=== PATIENT | female | born 1975 | race Caucasian/White ===

== ENCOUNTER 2016-09-14 12:06 | Inpatient (IN) ==
[2016-09-14 12:31] LABS: BILIRUBIN,URINE Negative (NEGATIVE); KETONES,URINE Trace (NEGATIVE); LEUKOCYTE ESTERASE ,URINE 1+ (NEGATIVE); NITRITE,URINE Positive (NEGATIVE); PROTEIN,URINE Negative (NEGATIVE); URINE, BLOOD 1+ (NEGATIVE)
[2016-09-14 12:32] LABS: ADD URINE MICROSCOPIC YES; URINE PREGNANCY INTERNAL QC INTERNAL QC VALID
[2016-09-14 12:33] LABS: BACTERIA,URINE 2+ (NOT PRESENT)
[2016-09-14 12:41] LABS: BASOPHILS # (AUTO) 0.1 K/uL (0-0.2); BASOPHILS % (AUTO) 0.3 % (0.0-3.0); EOSINOPHILS # (AUTO) 0.1 K/ul (0.0-0.7); EOSINOPHILS % (AUTO) 0.7 % (0.0-7.0); HEMATOCRIT 36.7 % (37.0-47.0); HEMOGLOBIN 11.9 g/dl (12.0-16.0); IMMATURE GRANULOCYTE % (AUTO) 0.9 % (0.0-5.0); LYMPHOCYTES # (AUTO) 1.9 K/uL (0.60-3.4); LYMPHOCYTES % (AUTO) 11.5 (10.0-50.0); MEAN CORPUSCULAR HEMOGLOBIN 30.5 pg (27.0-31.0); MEAN CORPUSCULAR HGB CONC 32.4 (31.8-35.4); MEAN CORPUSCULAR VOLUME 94.1 fl (81.0-99.0); MONOCYTES # (AUTO) 1.4 K/uL (0.4-2.0); MONOCYTES % (AUTO) 8.7 (0-10); NEUTROPHILS # (AUTO) 12.7 K/ul (2.0-6.9); NEUTROPHILS % (AUTO) 77.9; PLATELET COUNT 353 10^3/uL (140-440); WHITE BLOOD COUNT 16.27 K/ul (4.6-10.2)
[2016-09-14] MEDS ORDERED: SODIUM CHLORIDE 1,000 ML IV STA (12:43)
[2016-09-14] MEDS ORDERED: TORADOL IVP STA (12:44)
[2016-09-14] MEDS ORDERED: ROCEPHIN 1 GM in SODIUM CHLORIDE 50 ML IV STA (12:44)
[2016-09-14] MEDS ORDERED: MORPHINE 2 MG/ML SYRINGE IVP STA (12:46)
[2016-09-14] MEDS ORDERED: ZOFRAN 4 MG/2 ML IVP STA (12:46)
--- NOTE | 2016-09-14 12:48 | DI ---
Exam: Two x-rays of the chest. Comparison: 11/13/2011. Reason for exam: Fever. FINDINGS: No pneumothorax, pleural effusion, or focal consolidation. The cardiac silhouette is not enlarged. The imaged osseous structures are unremarkable without acute fracture. Impression: No acute cardiopulmonary process.
[2016-09-14] MEDS ORDERED: ROCEPHIN ONE (12:53)
[2016-09-14 13:00] LABS: ALBUMIN/GLOBULIN RATIO 0.77; ANION GAP 14.6; BILIRUBIN,TOTAL 0.12 mg/dL (0.00-1.20); BUN/CREATININE RATIO 19.04; CALCIUM 9.3 mg/dL (8.2-10.2); CREATININE 0.63 mg/dL (0.60-1.30); POTASSIUM 3.6 mmol/L (3.5-5.10); TOTAL PROTEIN 6.9 g/dL (6.4-8.2)
[2016-09-14 13:06] LABS: FLU INTERNAL QC INTERNAL QC VALID; RAPID FLU A NEGATIVE (NEGATIVE); RAPID FLU B NEGATIVE (NEGATIVE)
--- NOTE | 2016-09-14 13:19 | CT ---
Exam: CT of the abdomen pelvis without intravenous contrast. Comparison: 07/03/2014. Reason for exam: Flank pain and fever. UTI rule out obstruction. FINDINGS: Image interpretation is limited by the lack of intravenous contrast administration. No focal consolidation or pleural effusion in the partially imaged lung bases. Image interpretation is somewhat limited by paucity of intra-abdominal fat and attenuation artifact. . The liver, spleen, and gallbladder are grossly unremarkable. No calcific densities are seen within t he kidneys or along the expected course of the ureters. No intra-abdominal free air. The imaged os seous structures are unremarkable. No focal bowel dilatation or transition point. There is moderate to large stool burden seen through out the colon. Impression: 1. Limited evaluation secondary to attenuation artifact and a paucity of intra-abdominal fat. No o bvious nephrolithiasis or urolithiasis. If clinical concern exists, repeat imaging may be performed with a standard KVP. 2. Moderate to large stool burden. Report faxed at [phone] hours on 09/14/2016.
--- NOTE | 2016-09-14 13:27 | ED.PDOC ---
General ED Provider: Dr. BINTA MAHARAJ-ER Chief Complaint: Fever Stated Complaint: awilda had fever, chills, nausea body aches for a week Time Seen by Physician: 12:10 Mode of Arrival: Walk-In Information Source: Patient Exam Limitations: No limitations Primary Care Provider: MARGIE ALEMAN Nursing and Triage Documentation Reviewed and Agree: Yes Complaint Exam - UTI Female Complaint/Exam Patient Complains of: Reports: Painful urination Onset/Duration: 7 dasy Symptoms Are: Still present Initial Severity: Mild Current Severity: Moderate Associated Signs and Symptoms: Reports: Fever, Chills Patient Rh Status: Unknown CVA Tenderness: No Suprapubic Tenderness: No Differential Diagnoses: Cystitis, Pyelonephritis, Other Review of Systems - Review Of Systems Constitutional: Reports: Chills, Fever, Weakness, Loss of appetite Eyes: Reports: No symptoms Ears, Nose, Mouth, Throat: Reports: No symptoms Respiratory: Reports: No symptoms Cardiac: Reports: No symptoms GI: Reports: No symptoms : Reports: No symptoms Musculoskeletal: Reports: No symptoms Skin: Reports: No symptoms Neurological: Reports: No symptoms Endocrine: Reports: No symptoms Hematologic/Lymphatic: Reports: No symptoms All Other Systems: Reviewed and Negative Past Medical History - Past Medical History Endocrine: Reports: Unknown Cardiovascular: Reports: Unknown Respiratory: Reports: Unknown Hematological: Reports: Unknown Gastrointestinal: Reports: Unknown Genitourinary: Reports: Other (hx of IC) Neuro/Psych: Reports: None Musculoskeletal: Reports: None Cancer: Reports: None Last Menstrual Period: 08/27/16 - Surgical History General Surgical History: Reports: Unknown - Family History Family History: Reports: Unknown - Social History Smoking Status: Current some day smoker Hx Substance Use: No Alcohol Screening: Occasionally Lives: With family - Immunizations Tetanus Shot up to Date: Yes Physical Exam - Physical Exam Appearance: Well-appearing, No pain distress, Well-nourished Pain Distress: Mild Eyes: VALE, EOMI, Conjunctiva clear ENT: Ears normal, Nose normal, Oropharynx normal Neck: Supple Respiratory: Airway patent, Breath sounds clear, Breath sounds equal, Respirations nonlabored Cardiovascular: RRR, Pulses normal, No rub, No murmur GI/: Soft, Nontender, No masses, Bowel sounds normal, No Organomegaly Musculoskeletal: Normal strength, ROM intact, No edema, No calf tenderness Skin: Warm, Dry, Normal color Neurological: Sensation intact, Motor intact, Reflexes intact, Cranial nerves intact, Alert, Oriented Psychiatric: Affect appropriate, Mood appropriate Interpretation - Radiology Interpretation Radiology Interpretation By: ED Physician Radiology Results: Negative Exam Interpreted: CXR, CT Scan Re-Evaluation - Re-Evaluation Time of Re-Evaluation: 13:26 Status: Improved Vital Signs Stable: Yes Pain Level: 1 Appearance: NAD Lungs: Clear Skin: Warm and Dry Neuro: Alert and Oriented X3 CV: RRR Physician Notification - Case Discussed Physician Notified: dr eastman Time of Notification: 13:27 Critical Care Note - Critical Care Note Total Time (mins): 0 Course - Course Hematology/Chemistry: 09/14/16 12:25 09/14/16 12:25 Orders, Labs, Meds: Lab Review 09/14/16 09/14/16 09/14/16 12:20 12:25 12:45 WBC 16.27 H RBC 3.90 L Hgb 11.9 L Hct 36.7 L MCV 94.1 MCH 30.5 MCHC 32.4 RDW Coeff of [place] 13.2 Plt Count 353 Immature Gran % (Auto) 0.9 Neut % (Auto) 77.9 Lymph % (Auto) 11.5 [place] % (Auto) 8.7 Eos % (Auto) 0.7 Baso % (Auto) 0.3 Immature Gran # (Auto) 0.1 Neut # 12.7 H Lymph # 1.9 [place] # 1.4 Eos # 0.1 Baso # 0.1 Sodium 140 Potassium 3.6 Chloride 101 Carbon Dioxide 28 Anion Gap 14.6 BUN 12 Creatinine 0.63 Estimated GFR (MDRD) 105.00 BUN/Creatinine Ratio 19.04 Glucose 67 L Calcium 9.3 Total Bilirubin 0.12 AST 13 L ALT 13 Alkaline Phosphatase 96 Total Protein 6.9 Albumin 3.0 L Globulin 3.9 Albumin/Globulin Ratio 0.77 Urine Color Yellow Urine Clarity Slightly Urine pH 6.0 Ur Specific [place] 1.025 Urine Protein Negative Urine Glucose (UA) Negative Urine Ketones Trace Urine Blood 1+ Urine Nitrite Positive Urine Bilirubin Negative Urine Urobilinogen 0.2 Ur Leukocyte Esterase 1+ Urine Microscopic WBC 50-100 Ur Squamous Epith Cells Not present Urine Bacteria 2+ Urine Test Negative Influenza A (Rapid) Negative Influenza B (Rapid) Negative Orders Category Date Time Status ED IV/MEDIPORT/POWERPORT .ONCE EMERGENCY 09/14/16 12:43 Active BLOOD CULTURE Stat LAB 09/14/16 12:25 Received CBC W/ AUTO DIFF Stat LAB 09/14/16 12:25 Completed COMPREHENSIVE METABOLIC PANEL Stat LAB 09/14/16 12:25 Completed EHRLICHIA DNA, PCR Stat LAB 09/14/16 12:25 Received MOLECULAR GROUP A STREP Stat LAB 09/14/16 12:45 Results RAPID FLU A/B Stat LAB 09/14/16 12:45 Completed BERNY MTN SPOTTED FEVER,IgG Stat LAB 09/14/16 12:25 Received BERNY MTN SPOTTED FEVER,IgM Stat LAB 09/14/16 12:25 Received STREP SCREEN Stat LAB 09/14/16 12:45 Results URINALYSIS C & S IF INDICATED Stat LAB 09/14/16 12:20 Completed URINE CULTURE Stat LAB 09/14/16 12:20 Received URINE Stat LAB 09/14/16 12:20 Completed 0.9 % Sodium Chloride [Saline Flush] MEDS 09/14/16 12:43 Ordered 1 syr IVF PRN PRN Ceftriaxone Sodium [Rocephin] MEDS 09/14/16 12:53 Discontinued 1 gm .ROUTE .STK-MED ONE Ceftriaxone Sodium [Rocephin] 1 gm MEDS 09/14/16 12:44 Discontinued 0.9 % Sodium Chloride [Sodium Chloride] 50 ml IV ONCE Ketorolac Tromethamine [Toradol] MEDS 09/14/16 12:44 Discontinued 30 mg IVP ONCE STA Morphine Sulfate [Morphine 2 mg/ml Syringe] MEDS 09/14/16 12:46 Discontinued 2 mg IVP ONCE STA Ondansetron HCl/Pf [Zofran 4 mg/2 ml] MEDS 09/14/16 12:46 Discontinued 4 mg IVP ONCE STA Sodium Chloride 0.9% [Sodium Chloride] 1,000 ml MEDS 09/14/16 12:[address] ABDOMEN/PELVIS WO CONTRAST Stat RADS 09/14/16 12:43 Completed CXR [CHEST, 2 VIEWS PA & LAT] Stat RADS 09/14/16 12:20 Completed Medications Generic Name Dose Route Start Last Admin Trade Name Freq PRN Reason Stop Dose Admin Sodium Chloride 1,000 mls @ 1,200 mls/hr 09/14/16 12:43 09/14/16 13:06 Sodium Chloride IV 09/14/16 13:32 1,200 mls/hr BOLUS STA Administration Sodium Chloride 1 syr 09/14/16 12:43 Saline Flush IVF PRN PRN To flush IV Discontinued Medications Generic Name Dose Route Start Last Admin Trade Name Eugene PRN Reason Stop Dose Admin Ceftriaxone Sodium 1 gm/ 50 mls @ 75 mls/hr 09/14/16 12:44 09/14/16 13:05 Sodium Chloride IV 09/14/16 13:23 75 mls/hr ONCE STA Administration Ketorolac Tromethamine 30 mg 09/14/16 12:44 09/14/16 13:07 Toradol IVP 09/14/16 12:45 30 mg ONCE STA Administration Morphine Sulfate 2 mg 09/14/16 12:46 09/14/16 13:03 Morphine 2 Mg/Ml Syringe IVP 09/14/16 12:47 2 mg ONCE STA Administration Ondansetron HCl 4 mg 09/14/16 12:46 09/14/16 13:07 Zofran 4 Mg/2 Ml IVP 09/14/16 12:47 4 mg ONCE STA Administration Vital Signs: Temp Pulse Resp BP Pulse Ox 09/14/16 12:06 99.4 F 87 20 112/74 99 Departure - Departure Time of Disposition: 13:27 Disposition: ADMITTED INPATIENT Discharge Problem: Pyelonephritis Instructions: Urinary Tract Infection in Women (ED) Condition: Good Pt referred to PMD for follow-up: Yes Allergies/Adverse Reactions: Allergies No Known Allergies Allergy (Unverified 09/14/16 12:14) Home Medications: Ambulatory Orders Clonazepam [Klonopin] 2 mg PO TID 09/14/16 Pentosan Polysulfate Sodium [Elmiron] 100 mg PO TID 09/14/16 Sertraline HCl [Zoloft] 100 mg PO DAILY 09/14/16 Disposition Discussed With: Patient, Family
[2016-09-14] MEDS ORDERED: MOTRIN SUSP PO PRN (13:31)
[2016-09-14] MEDS ORDERED: NORCO 7.5-325 PO PRN (13:32)
[2016-09-14 14:26] VITALS: BMI 19.2
[2016-09-14] MEDS: SODIUM CHLORIDE 1,000 ML IV SCH (14:49)
[2016-09-14] MEDS ORDERED: KLONOPIN ONE ×2 (14:59→19:58)
[2016-09-14] MEDS: DOXY-100 100 MG in SODIUM CHLORIDE 250 ML IV SCH ×2 (15:11→20:35)
[2016-09-14] MEDS: NON-FORMULARY MEDICATION (Clonazepam [Klonopin] 2 MG) PO SCH ×2 (15:12→20:37)
[2016-09-14] MEDS: PENTOSAN POLYSULFATE SODIUM 100 MG PO SCH ×2 (15:13→20:39)
[2016-09-14] MEDS ORDERED: MORPHINE 2 MG/ML SYRINGE IVP PRN (15:55)
[2016-09-14] MEDS ORDERED: DILAUDID 1 MG/ML SYRINGE IVP STA (21:29)
[2016-09-14] MEDS: ZOFRAN 4 MG/2 ML IVP PRN (21:44)
[2016-09-14] MEDS ORDERED: MOTRIN ONE (22:21)
[2016-09-14] MEDS ORDERED: MOTRIN SUSP UD ONE (22:29)
[2016-09-15] MEDS: SODIUM CHLORIDE 1,000 ML IV SCH ×4 (00:45→18:55)
[2016-09-15] MEDS ORDERED: SODIUM CHLORIDE 500 ML IV STA (02:50)
[2016-09-15 04:55] LABS: BASOPHILS # (AUTO) 0.1 K/uL (0-0.2); BASOPHILS % (AUTO) 0.4 % (0.0-3.0); EOSINOPHILS # (AUTO) 0.1 K/ul (0.0-0.7); EOSINOPHILS % (AUTO) 0.8 % (0.0-7.0); HEMATOCRIT 32.1 % (37.0-47.0); HEMOGLOBIN 10.5 g/dl (12.0-16.0); IMMATURE GRANULOCYTE % (AUTO) 0.7 % (0.0-5.0); LYMPHOCYTES # (AUTO) 2.9 K/uL (0.60-3.4); LYMPHOCYTES % (AUTO) 18.1 (10.0-50.0); MEAN CORPUSCULAR HGB CONC 32.7 (31.8-35.4); MEAN CORPUSCULAR VOLUME 94.7 fl (81.0-99.0); MONOCYTES # (AUTO) 1.7 K/uL (0.4-2.0); MONOCYTES % (AUTO) 10.9 (0-10); NEUTROPHILS # (AUTO) 10.9 K/ul (2.0-6.9); NEUTROPHILS % (AUTO) 69.1; PLATELET COUNT 330 10^3/uL (140-440); RED BLOOD COUNT 3.39 10^6/ul (4.20-5.40); WHITE BLOOD COUNT 15.71 K/ul (4.6-10.2)
[2016-09-15 05:21] LABS: ALBUMIN 2.3 g/dL (3.4-5.0); ALBUMIN/GLOBULIN RATIO 0.72; ANION GAP 12.8; BILIRUBIN,TOTAL 0.11 mg/dL (0.00-1.20); BUN/CREATININE RATIO 15.15; CALCIUM 8.6 mg/dL (8.2-10.2); CREATININE 0.66 mg/dL (0.60-1.30); POTASSIUM 3.8 mmol/L (3.5-5.10); TOTAL PROTEIN 5.5 g/dL (6.4-8.2)
[2016-09-15] MEDS: ZOLOFT PO SCH (08:56)
[2016-09-15] MEDS: ROCEPHIN 1 GM in SODIUM CHLORIDE 50 ML IV SCH (08:57)
[2016-09-15] MEDS: KLONOPIN PO SCH ×3 (08:57→20:49)
[2016-09-15] MEDS ORDERED: NON-FORMULARY MEDICATION (Sertraline Hcl [Zoloft] 100 MG) PO SCH (09:00)
[2016-09-15] MEDS: PENTOSAN POLYSULFATE SODIUM 100 MG PO SCH ×3 (09:23→20:50)
[2016-09-15] MEDS: DOXY-100 100 MG in SODIUM CHLORIDE 250 ML IV SCH ×2 (10:02→20:49)
[2016-09-15] MEDS ORDERED: MOTRIN SUSP PO PRN (10:32)
--- NOTE | 2016-09-15 15:41 | HP ---
DATE OF SERVICE: 09/14/16 REASON FOR HOSPITALIZATION: Hurting all over HISTORY OF PRESENT ILLNESS: The patient is a 41 year old female came to the emergency room with the fever almost 102 to 103, hurting all over, burning and frequency of urination, suprapubic pain and back pain. The patient was seen by Dr. Carty in the emergency room, temperature 99.4, wbc 16,000. CT of abdomen and pelvis was done which showed limited evaluation. The patient did have flank pain, urine was positive for nitrates and leukocyte esterase. At that time the patient was admitted to the hospital with pyelonephritis, critically, in review of elevated white count, urine positive for nitrates and leukocyte esterase and the flank pain. Also the patient complained of having the tick bite for which the patient is started on the Doxycycline. REVIEW OF SYSTEMS: CONSTITUTIONAL: No night sweats. No fatigue, malaise, lethargy. No fever or chills. HEENT: Eyes: No visual changes. No eye pain. No eye discharge. ENT: No runny nose. No epistaxis. No sinus pain. No sore throat. No odynophagia. No ear pain. No congestion. RESPIRATORY: No cough, no congestion. No hemoptysis. CARDIOVASCULAR: No angina symptoms. No CHF symptoms. No atypical chest pain for CAD. No palpitations. No shortness of breath. GASTROINTESTINAL: No abdominal pain. No nausea or vomiting. No diarrhea or constipation. No hematemesis. No hematochezia. GENITOURINARY: Burning and frequency of urination. No dysuria. No hematuria. No obstructive symptoms. No discharge. No pain. No significant abnormal bleeding. MUSCULOSKELETAL: Muscle pain and myalgias. Hurting all over. No joint swelling. No arthritis. NEUROLOGICAL: No headache. No neck pain. No syncope. No seizures. No dizziness. PSYCHIATRIC: Not anxious. No depression. No suicidal thoughts. No homicidal thoughts. SKIN: No rash. No lesions. No wounds. ENDOCRINE: No unexplained weight loss. No weight gain. HEMATOLOGIC/LYMPHATIC: No anemia. No purpura. No petechiae. No prolonged or excessive bleeding. No palpable lymph nodes. PERSONAL/FAMILY/SOCIAL HISTORY: The patient is and lives with the . Non-smoker. No alcohol and no drugs. The family history is significant for the heart problems and cancer. PAST MEDICAL/SURGICAL PROBLEMS: Chronic cystitis for which she seems urologist Anxiety Tonsillectomy MEDICATIONS: Zoloft Elmiron Klonopin ALLERGIES: No known allergies. PHYSICAL EXAMINATION: VITAL SIGNS: Blood pressure 112/74, respiratory rate 20, heart rate 87 and temperature 99.4. HEENT: Head normocephalic, atraumatic. Eyes: Extraocular muscles are intact. Pupils are equal, round and reactive to light and accommodation. Ears: No lesions. Nose appeared normal. Throat: No exudate or erythema. Mucosa dry. NECK: Supple. No JVD, no carotid bruit. No lymphadenopathy or thyromegaly. LUNGS: Decreased and clear to auscultation. Percussion note normal. Chest symmetrical. HEART: S1, S2, no S3. No murmurs. No cyanosis or clubbing. No ascites. Pulses: Dorsalis pedis and posterior tibial pulses +1 to +2 both sides. ABDOMEN: Soft. Nontender. Bowel sounds active. Bilateral CVA tenderness is present. No mass felt. EXTREMITIES: No edema. Full range of motion of all extremities, equal. NEUROLOGIC: No focal deficit. Cranial nerves II through XII are grossly intact. No headache, no double vision or headache. SKIN: Not dry. Intact. Turgor - normal. LYMPHATIC: No palpable lymph nodes/no lymphedema. MUSCULOSKELETAL: Normal joints with no swelling. Muscle tone is normal. LABS: WBC 16.27, hgb 11.9, hct 36.7, plt count 353, sodium 140, potassium 3.6, chloride 101, Bicarb 28, BUN 12, creatinine 0.63 and glucose 67. Urine leukocyte esterase positive, Nitrates positive. ASSESSMENT: 1. Acute pyelonephritis 2. Tick bite, rule out any tick born disease 3. Chronic cystitis 4. Anxiety 5. Depression PLAN: 1. Admit patient to the regular floor 2. Will do CMP everyday 3. Regular diet 4. IV fluids 5. Continue home medication 6. Rocephin 1 gram daily 7. Morphine 2mg Q 8 hours 8. Daily I&O's Will follow the patient in daily rounds. TIME SPENT: More than 70 minutes. MTDD
[2016-09-15] MEDS ORDERED: DILAUDID 1 MG/ML SYRINGE IVP STA (17:41)
[2016-09-16 04:56] LABS: BASOPHILS # (AUTO) 0.1 K/uL (0-0.2); BASOPHILS % (AUTO) 0.4 % (0.0-3.0); EOSINOPHILS # (AUTO) 0.2 K/ul (0.0-0.7); EOSINOPHILS % (AUTO) 1.4 % (0.0-7.0); HEMATOCRIT 32.1 % (37.0-47.0); HEMOGLOBIN 10.4 g/dl (12.0-16.0); IMMATURE GRANULOCYTE % (AUTO) 0.9 % (0.0-5.0); LYMPHOCYTES # (AUTO) 2.9 K/uL (0.60-3.4); MEAN CORPUSCULAR HEMOGLOBIN 30.7 pg (27.0-31.0); MEAN CORPUSCULAR HGB CONC 32.4 (31.8-35.4); MEAN CORPUSCULAR VOLUME 94.7 fl (81.0-99.0); MONOCYTES # (AUTO) 1.1 K/uL (0.4-2.0); MONOCYTES % (AUTO) 8.4 (0-10); NEUTROPHILS # (AUTO) 8.3 K/ul (2.0-6.9); NEUTROPHILS % (AUTO) 65.9; PLATELET COUNT 362 10^3/uL (140-440); RED BLOOD COUNT 3.39 10^6/ul (4.20-5.40); WHITE BLOOD COUNT 12.55 K/ul (4.6-10.2)
[2016-09-16 05:13] LABS: ALANINE AMINOTRANSFERASE 25 U/L (12-78); ALBUMIN 2.3 g/dL (3.4-5.0); ALBUMIN/GLOBULIN RATIO 0.68; ALKALINE PHOSPHATASE 82 U/L (42-98); ANION GAP 11.7; ASPARTATE AMINO TRANSFERASE 27 U/L (15-37); BLOOD UREA NITROGEN 10 mg/dL (7-18); BUN/CREATININE RATIO 16.12; CALCIUM 8.6 mg/dL (8.2-10.2); CARBON DIOXIDE 31 mmol/L (21-32); CHLORIDE 104 mmol/L (98-107); CREATININE 0.62 mg/dL (0.60-1.30); GLUCOSE 102 mg/dL (70-110); POTASSIUM 3.7 mmol/L (3.5-5.10); SODIUM 143 mmol/L (136-145); TOTAL PROTEIN 5.7 g/dL (6.4-8.2)
[2016-09-16 05:23] LABS: BILIRUBIN,TOTAL < 0.10 mg/dL (0.00-1.20)
[2016-09-16] MEDS ORDERED: DILAUDID 1 MG/ML SYRINGE IVP STA (05:46)
[2016-09-16] MEDS: SODIUM CHLORIDE 1,000 ML IV SCH (07:21)
[2016-09-16] MEDS: KLONOPIN PO SCH ×3 (08:56→20:08)
[2016-09-16] MEDS: ROCEPHIN 1 GM in SODIUM CHLORIDE 50 ML IV SCH (08:57)
[2016-09-16] MEDS: ZOLOFT PO SCH (08:57)
[2016-09-16] MEDS: PENTOSAN POLYSULFATE SODIUM 100 MG PO SCH ×3 (08:57→20:32)
[2016-09-16] MEDS: DOXY-100 100 MG in SODIUM CHLORIDE 250 ML IV SCH ×2 (09:39→20:07)
[2016-09-16] MEDS ORDERED: NORCO 7.5-325 PO STA (22:16)
[2016-09-16] MEDS: ZOFRAN 4 MG/2 ML IVP PRN (22:21)
[2016-09-17 05:56] LABS: BASOPHILS # (AUTO) 0.1 K/uL (0-0.2); BASOPHILS % (AUTO) 0.5 % (0.0-3.0); EOSINOPHILS # (AUTO) 0.2 K/ul (0.0-0.7); EOSINOPHILS % (AUTO) 2.2 % (0.0-7.0); HEMOGLOBIN 10.3 g/dl (12.0-16.0); IMMATURE GRANULOCYTE % (AUTO) 1.2 % (0.0-5.0); LYMPHOCYTES % (AUTO) 31.1 (10.0-50.0); MEAN CORPUSCULAR HEMOGLOBIN 30.2 pg (27.0-31.0); MEAN CORPUSCULAR HGB CONC 32.2 (31.8-35.4); MEAN CORPUSCULAR VOLUME 93.8 fl (81.0-99.0); MONOCYTES # (AUTO) 0.8 K/uL (0.4-2.0); MONOCYTES % (AUTO) 7.9 (0-10); NEUTROPHILS # (AUTO) 5.5 K/ul (2.0-6.9); NEUTROPHILS % (AUTO) 57.1; PLATELET COUNT 426 10^3/uL (140-440); RED BLOOD COUNT 3.41 10^6/ul (4.20-5.40); WHITE BLOOD COUNT 9.62 K/ul (4.6-10.2)
[2016-09-17 06:18] LABS: ALANINE AMINOTRANSFERASE 25 U/L (12-78); ALBUMIN 2.4 g/dL (3.4-5.0); ALBUMIN/GLOBULIN RATIO 0.69; ALKALINE PHOSPHATASE 79 U/L (42-98); ANION GAP 12.1; ASPARTATE AMINO TRANSFERASE 21 U/L (15-37); BLOOD UREA NITROGEN 9 mg/dL (7-18); CARBON DIOXIDE 32 mmol/L (21-32); CHLORIDE 103 mmol/L (98-107); GLUCOSE 96 mg/dL (70-110); POTASSIUM 4.1 mmol/L (3.5-5.10); SODIUM 143 mmol/L (136-145); TOTAL PROTEIN 5.9 g/dL (6.4-8.2)
[2016-09-17 06:34] LABS: BILIRUBIN,TOTAL < 0.10 mg/dL (0.00-1.20)
[2016-09-17] MEDS: KLONOPIN PO SCH (08:39)
[2016-09-17] MEDS: ROCEPHIN 1 GM in SODIUM CHLORIDE 50 ML IV SCH (08:39)
[2016-09-17] MEDS: ZOLOFT PO SCH (08:39)
[2016-09-17] MEDS: PENTOSAN POLYSULFATE SODIUM 100 MG PO SCH (08:40)
[2016-09-17] MEDS: DOXY-100 100 MG in SODIUM CHLORIDE 250 ML IV SCH (09:07)
[2016-09-17 10:32] VITALS: BP 86/67; TEMP 97.1
--- NOTE | 2016-09-17 11:51 | PN ---
DATE OF SERVICE: 09/15/16 SUBJECTIVE: The patient was admitted with the pyelonephritis bilateral and still having pain. Because of the pain medication the patient's blood pressure dropped to the 80's and had to give a 500 fluid bolus and still the blood pressure is 89. She is complaining of dizziness, nausea or vomiting. Her fever yesterday night was 102. REVIEW OF SYSTEMS: CONSTITUTIONAL: No fever, no chills. HEENT: Normal. ENDOCRINE: No weight gain, no weight loss. CVS: No angina symptoms. No CHF symptoms. No palpitations. No atypical chest pain for CAD. No shortness of breath. No PND, no orthopnea. RESPIRATORY: No cough, no hemoptysis. GI: No nausea, no vomiting. No abdominal pain. : No hematuria. No polyuria. MUSCULOSKELETAL:. No joint swelling. PSYCHIATRIC: Not anxious. No depression. No suicidal thoughts. No homicidal thoughts. SKIN: Intact. No rash. PHYSICAL EXAMINATION: V/S: Blood pressure 108/73, respiratory rate 20, heart rate 88 and temperature 98.8. HEENT: Normocephalic, atraumatic. Mucosa dry. Pallor positive. No icterus. NECK: Supple. No JVD, no carotid bruit. No lymphadenopathy. LUNGS: Clear to auscultation. No rales or rhonchi. HEART: S1, S2 normal. No S3. No murmur, gallop or regurgitation. ABDOMEN: Soft, nontender. Bowel sounds active. No rigidity. No rebound or guarding. Bilateral CVA tenderness is present. EXTREMITIES: No clubbing, cyanosis or pedal edema. MUSCULOSKELETAL: No joint swelling. NEUROLOGIC: Awake, alert, oriented times three. No focal deficit. LYMPHATIC: No lymph nodes palpable. SKIN: Intact. LABS: WBC 15.71, hgb 10.5, hct 32.1, plt count 330, sodium 143, potassium 3.8, chloride 105, bibcarb 29, BUN 10, creatinine 0.66, glucose 118 ASSESSMENT: 1. Bilateral pyelonephritis, organism gram negative rods. 2. History fo anxiety 3. Chronic cystitis for which the patient sees the Urologist. PLAN: 1. Continue the Rocephin 1 gram daily 2. Dilaudid 1mg PRN if systolic blood pressure more than 100 3. Continue IV fluids 4. Out of bed to chair 5. No anticoagulation as patient is active. TIME SPENT: More than 30 minutes MTDD
--- NOTE | 2016-09-17 13:28 | PN ---
DATE OF SERVICE: 09/16/16 SUBJECTIVE: The patient was admitted with the bilateral pyelonephritis. Still having the pain and needing to given the Dilaudid only medication that is helping. Her blood pressure drops with the pain medication. Otherwise the patient is up and about walking still having a lot of sweating. REVIEW OF SYSTEMS: CONSTITUTIONAL: No fever, no chills. HEENT: Normal. ENDOCRINE: No weight gain, no weight loss. CVS: No angina symptoms. No CHF symptoms. No palpitations. No atypical chest pain for CAD. No shortness of breath. No PND, no orthopnea. RESPIRATORY: No cough, no hemoptysis. GI: No nausea, no vomiting. No abdominal pain. : No hematuria. No polyuria. MUSCULOSKELETAL:. No joint swelling. PSYCHIATRIC: Not anxious. No depression. No suicidal thoughts. No homicidal thoughts. SKIN: Intact. No rash. PHYSICAL EXAMINATION: V/S: Blood pressure 92/63, respiratory rate 18, heart rate 82, temperature 97.8. HEENT: Normocephalic, atraumatic. Mucosa dry. Pallor positive. No icterus. NECK: Supple. No JVD, no carotid bruit. No lymphadenopathy. LUNGS: Decreased and clear to auscultation. No rales or rhonchi. HEART: S1, S2 normal. No S3. No murmur, gallop or regurgitation. ABDOMEN: Soft, nontender. Bowel sounds active. No rigidity. No rebound or guarding. Bilateral CVA tenderness. EXTREMITIES: No clubbing, cyanosis or pedal edema. MUSCULOSKELETAL: No joint swelling. NEUROLOGIC: Awake, alert, oriented times three. No focal deficit. LYMPHATIC: No lymph nodes palpable. SKIN: Intact. LABS: WBC 12.55, hgb 10.4, hct 32.1, plt count 362, sodium 143, potassium 3.7, chloride 104, bicarb 31, BUN 10, creatinine 0.62 ASSESSMENT: 1. Bilateral pyelonephritis, organism gram negative rods 2. Anemia, chronic 3. History of tonsillectomy 4. Anxiety PLAN: 1. Continue Rocephin 2. Dilaudid 1mg PRN only if the systolic blood pressure is more than 100 3. Out of bed to chair activity as tolerated TIME SPENT: More than 30 minutes MTDD
--- NOTE | 2016-10-17 15:30 | DS ---
DATE OF SERVICE: 09/17/16 FINAL DIAGNOSIS: 1. Acute bilateral pyelonephritis, organism e-coli rods. 2. Anemia, chronic 3. History of tonsillectomy 4. Anxiety 5. Chronic interstitial cystitis for which patient been treated with Elmiron by the urologist. 6. Depression 7. Anxiety disorder DISCHARGE INSTRUCTIONS: Discharge the patient home. Continue home medications. MEDICATIONS AT DISCHARGE: Klonopin 2mg PO twice a day Pentosan 100mg three times a day NEW PRESCRIPTIONS: [place] 5mg PO twice daily PRN Bactrim DS twice daily for 7 days DIET INSTRUCTIONS: Healthy heart, drink plenty of water with antibiotics ACTIVITY: Get plenty of rest and activity as tolerated SMOKING: Current everyday user. DISEASE SPECIFIC EDUCATION: Urinary tract infection Increase hydration Probiotic and yogurt been discussed HOSPITAL COURSE: Devora Brar who is a 41 year old female with history of chronic interstitial cystitis for which the patient is being treated with Elmiron by patient's urologist came to the emergency room with increased burning and frequency of urination. The emergency room physician, Dr. Carty saw the patient , WBC was 17,000 16,000 with the left shift. Urine has some blood, nitrates positive and leukocyte esterase positive. Serology was negative. Dr. Carty did the CT of abdomen and pelvis which did show limited evaluation secondary to attenuation artifact and the paucity of intra-abdominal fat. Large stool burden. Flank tenderness was present so the patient was admitted for the bilateral pyelonephritis with history of chronic interstitial cystitis. The patient is started on the antibiotic Rocephin and IV fluids. Gradually the WBC was getting better from 16,000 to 15,00 then 12,000. Meanwhile the serology for the tick bite fever is negative. The patient did have fever of 102 but gradually subsided with antibiotics. The patient is more awake and alert. Hgb stayed steady and did not fall. Organism was e-coli and it was sensitive to the Bactrim and at that patient is discharged home and strictly advised to have followup with urologist. Bactrim will be give for 7 more days. Advised to take the Probiotics. TIME SPENT: More than 60 minutes today. MTDD
== END 2016-09-17 12:10 | disposition home or self-care (01) | DRG 690 ==
LOC: ED 12:06 → MEDSURG B 13:27
PROVIDERS: ADMIT Emergency Medicine; ATTEND Emergency Medicine
DX: N12 Tubulo-interstitial nephritis, not specified as acute or chronic (principal); N30.20 Other chronic cystitis without hematuria; R50.9 Fever, unspecified; D50.0 Iron deficiency anemia secondary to blood loss (chronic); B96.20 Unspecified Escherichia coli [E. coli] as the cause of diseases classified elsewhere; F41.8 Other specified anxiety disorders; I95.2 Hypotension due to drugs; T14.8 Other injury of unspecified body region; W57.XXXA Bitten or stung by nonvenomous insect and other nonvenomous arthropods, initial encounter; Z16.11 Resistance to penicillins; Z79.899 Other long term (current) drug therapy
CPT/HCPCS: 36415; 80053; 81001; 81025; 85025; 86757; 87040; 87086; 87186; 87651; 87798; 87804; 87880; 96360; 99283